=== PATIENT | male | born 2000 | race Caucasian/White ===

== ENCOUNTER → 2019-07-02 15:42 | Outpatient (BNVA) | payer OTHER, SELFPAY | PROVIDERS: Family Provider Family Medicine; PCP Family Medicine; Visit Provider Psychiatry & Neurology Psychiatry | DX: F33.1 Major depressive disorder, recurrent, moderate (principal); F41.1 Generalized anxiety disorder | CPT/HCPCS: 99214 ==

== ENCOUNTER → 2019-08-20 08:27 | Outpatient (BNVA) | payer OTHER, SELFPAY | PROVIDERS: Family Provider Family Medicine; PCP Family Medicine; Visit Provider Psychiatry & Neurology Psychiatry | DX: F33.1 Major depressive disorder, recurrent, moderate (principal) | CPT/HCPCS: 99213 ==

== ENCOUNTER → 2019-12-11 16:00 | Outpatient (BNVA) | payer OTHER, SELFPAY | PROVIDERS: Family Provider Family Medicine; Visit Provider Psychiatry & Neurology Psychiatry | DX: F33.1 Major depressive disorder, recurrent, moderate (principal) | CPT/HCPCS: 99213 ==

== ENCOUNTER → 2020-03-05 08:24 | Outpatient (BNVA) | payer OTHER, SELFPAY | PROVIDERS: Family Provider Family Medicine; Visit Provider Psychiatry & Neurology Psychiatry | DX: F33.1 Major depressive disorder, recurrent, moderate (principal) | CPT/HCPCS: 99213 ==

== ENCOUNTER → 2020-05-28 09:43 | Outpatient (BNVA) | payer OTHER, SELFPAY | PROVIDERS: Family Provider Family Medicine; Visit Provider Psychiatry & Neurology Psychiatry | DX: F33.1 Major depressive disorder, recurrent, moderate (principal); F41.1 Generalized anxiety disorder; F17.200 Nicotine dependence, unspecified, uncomplicated | CPT/HCPCS: 99214 ==

== ENCOUNTER → 2020-08-25 15:45 | Outpatient (BNVA) | payer OTHER, SELFPAY | PROVIDERS: Family Provider Family Medicine; Visit Provider Psychiatry & Neurology Psychiatry | DX: F41.1 Generalized anxiety disorder (principal); F33.1 Major depressive disorder, recurrent, moderate; F17.200 Nicotine dependence, unspecified, uncomplicated | CPT/HCPCS: 99213 ==

== ENCOUNTER 2020-09-09 10:48 | Emergency (ER) | payer OTHER, SELFPAY ==
[2020-09-09 11:13] VITALS: BP 124/79; PULSE 73; RESP 16; TEMP 36.4; O2SAT 99; BMI 27.4
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
--- NOTE | 2020-09-09 11:38 | ECG_ITS ---
[facility] Test Date: 2020-09-09 Pat Name: Timmy Bruno Department: Room: Gender: Male Videotape Operator: : 2000 Requested By: Jacqueline Ibarra I Order Number: [id number] Nakul MD: Patt Duque M.D. Measurements Intervals [place] Rate: 65 P: 57 DC: 156 QRS: 39 QRSD: 88 T: 52 QT: 374 QTc: 391 Interpretive Statements SINUS RHYTHM No previous ECG available for comparison Electronically Signed On 09-10-2020 6:52:03 CDT by Patt Duque M.D. [email or web address]
[2020-09-09 12:15] VITALS: BP 116/70; PULSE 67; RESP 18; O2SAT 98
[2020-09-09 12:30] VITALS: PULSE 62; RESP 18; O2SAT 96
[2020-09-09 12:47] LABS: Basophils # 0.1 10^3/uL (0.0-0.1); Basophils % 0.9 %; Eosinophils # 0.2 10^3/uL (0.0-0.8); Eosinophils % 3.1 %; Hematocrit 44.9 % (42.0-52.0); Hemoglobin 15.2 g/dL (11.7-16.6); Lymphocytes # 2.1 10^3/uL (0.8-4.8); Lymphocytes % 38.3 %; Mean Corpuscular HGB Conc 33.9 g/dL (30.0-36.0); Mean Corpuscular Hemoglobin 30.2 pg (28.0-34.0); Mean Corpuscular Volume 89.1 fL (80-94); Mean Platelet Volume 9.5 fL (7.4-10.4); Monocytes # 0.5 10^3/uL (0.2-0.9); Monocytes % 8.3 %; Neutrophils # 2.65 10^3/uL (1.8-7.7); Neutrophils % 49.2 %; Nucleated Red Blood Cells % 0 %; Platelet Count 210 10^3/cmm (130-400); Red Blood Count 5.04 10^6/uL (4.1-5.3); Red Cell Distribution Width 12.9 % (12.1-15.1); White Blood Count 5.4 10^3/uL (4.0-10.0)
[2020-09-09 12:51] LABS: Alanine Aminotransferase 21 U/L (0-41); Albumin Level 4.6 g/dL (3.5-5.2); Alkaline Phosphatase 64 IU/L (40-130); Anion Gap 12.3 (5-19); Aspartate Amino Transferase 19 U/L (0-40); Blood Urea Nitrogen 8 mg/dL (6-20); Carbon Dioxide 30 mmol/L (22-29); Chloride 100 mmol/L (98-107); Globulin 2.7 g/dL (1.3-4.6); Glucose 82 mg/dL (65-115); Magnesium 2.1 mg/dL (1.7-2.3); Osmolality Calculated 283 mOsm/kg (285-295); Potassium 4.3 mmol/L (3.5-5.1); Sodium 138 mmol/L (136-145); Total Bilirubin 0.2 mg/dL (0.15-1.2); Total Protein 7.3 g/dL (6.6-8.7)
[2020-09-09 13:25] VITALS: BP 120/74; PULSE 77; RESP 18; TEMP 36.7; O2SAT 97
== END 2020-09-09 13:25 | disposition home or self-care (01) ==
PROVIDERS: Emergency Provider Family Medicine
DX: T22.00XA Burn of unspecified degree of shoulder and upper limb, except wrist and hand, unspecified site, initial encounter (principal); T65.91XA Toxic effect of unspecified substance, accidental (unintentional), initial encounter; F17.290 Nicotine dependence, other tobacco product, uncomplicated
CPT/HCPCS: 80053; 83735; 85025; 93005; 99283

== ENCOUNTER 2021-08-10 20:00 | Outpatient (CLI) | payer OTHER, SELFPAY | END 2021-08-10 20:01 | disposition home or self-care (01) | LOC: SLEEP 08-11 08:34 | PROVIDERS: Visit Provider Nurse Practitioner Family | DX: G47.33 Obstructive sleep apnea (adult) (pediatric) (principal) | CPT/HCPCS: 95810 ==

== ENCOUNTER 2021-10-28 20:00 | Outpatient (CLI) | payer OTHER, SELFPAY | END 2021-10-28 20:01 | disposition home or self-care (01) | LOC: SLEEP 10-29 05:25 | PROVIDERS: Visit Provider Nurse Practitioner Family | DX: G47.31 Primary central sleep apnea (principal) | CPT/HCPCS: 95811 ==

== ENCOUNTER 2023-11-04 09:10 | Outpatient (CLI) | payer OTHER, SELFPAY ==
[2023-11-04 10:54] LABS: Sperm Immotility 50 % (50-60); Sperm Non-Progressive Motility 5 % (5-10); Viscosity Semen High Viscosity
[2023-11-04 10:55] LABS: Pathology Referral Yes; Red Blood Count Semen Rare /hpf; Sperm Progressive Motility 45 % (31-34); White Blood Count Semen 0-4 /hpf
[2023-11-04 11:08] LABS: PH Semen 8.5 (7.0-8.0)
== END 2023-11-04 09:11 | disposition home or self-care (01) ==
LOC: LAB 09:14
PROVIDERS: PCP Nurse Practitioner Family; Visit Provider Nurse Practitioner Family
DX: E29.1 Testicular hypofunction (principal)
CPT/HCPCS: 80503; 89320